=== PATIENT | female | born 1955 | race Caucasian/White ===

== ENCOUNTER → 2020-06-19 | Day surgery (SDC) | payer MEDICARE ==
[~2020-06-19] MED LIST: CITALOPRAM 40MG40 MG PO; HCTZ25 MG PO; K-DUR20 MEQ PO; LISINOPRIL40 MG PO; METFORMIN HCL1000 MG PO; PRAVACHOL20 MG PO
== END | disposition home or self-care (01) ==
LOC: FAS 07:52
DX: R19.5 Other fecal abnormalities (principal); K57.30 Diverticulosis of large intestine without perforation or abscess without bleeding; N84.1 Polyp of cervix uteri; K52.9 Noninfective gastroenteritis and colitis, unspecified; D72.829 Elevated white blood cell count, unspecified; R09.89 Other specified symptoms and signs involving the circulatory and respiratory systems; E11.9 Type 2 diabetes mellitus without complications; F17.210 Nicotine dependence, cigarettes, uncomplicated; I10 Essential (primary) hypertension; M19.90 Unspecified osteoarthritis, unspecified site; E78.00 Pure hypercholesterolemia, unspecified; E66.9 Obesity, unspecified; Z68.35 Body mass index [BMI] 35.0-35.9, adult; Z79.84 Long term (current) use of oral hypoglycemic drugs; Z79.899 Other long term (current) drug therapy
CPT/HCPCS: 36415; 82962; 84132; J2704; J7120